=== PATIENT | male | born 1975 | race Caucasian/White ===

== ENCOUNTER 2017-06-12 15:53 | Emergency (ER) | payer BC, MEDICAID, OTHER ==
--- NOTE | 2017-06-12 17:23 | EDM.PDOC ---
ED HPI GENERAL MEDICAL PROBLEM - General Chief Complaint: Back Pain or Injury Stated Complaint: Back pain, fell in store Time Seen by Provider: 06/12/17 17:15 Source of Information: Reports: Patient, Family, RN History Limitations: Reports: No Limitations - History of Present Illness INITIAL COMMENTS - FREE TEXT/NARRATIVE: 41 yr male presents with low back pain. States he fell inside at [facility] at [place], [place] and fell on his left knee and braced self with hands. He recently had surgery to lower back about 8 days ago. States his juany are due to come out today or next Thursday. He will plan to have them taken out per his PCP in [place], [place]. States there may be about 15 inches of snow there on Thursday. If this snow does occur, his back-up plan is to come in to [place] for staple removal. He reported this fall to his surgeon and was recommended to come in to ER to have images done. After the fall was reported at [facility], pt proceeded to [place], 100 miles north. States his plans is to move to [place] and was getting some supplies to work on place in [place]. Pt is in the treatment room and is sitting in the treatment chair. He is moving his left knee without difficulty and no bruising noted to area. He has full ROM to left wrist and hand and no bruising or swelling noted. States he does have pain to back at the surgical area. [place] are intact and mild redness noted to juany, no drainage from wound and healing well. , Onset: Today Onset Date: 06/12/17 Location: Denies: Back Back Pain Score (Numeric/FACES): 5 - Related Data Allergies Allergy/AdvReac Type Severity Reaction Status Date / Time ampicillin Allergy Edema Verified 06/12/17 18:34 Penicillins Allergy Edema Verified 06/12/17 18:34 trazodone Allergy Priapism Uncoded 06/12/17 18:34 Home Meds: Home Meds Acetaminophen/oxyCODONE [Percocet 325-5 MG] 1 each PO Q6HR 06/12/17 [History] Citalopram Hydrobromide [Celexa] 20 mg PO DAILY 06/12/17 [History] Hydrochlorothiazide 25 mg PO DAILY 06/12/17 [History] Insulin Detemir [Levemir Flextouch] 72 units SQ DAILY 06/12/17 [History] Lisinopril 20 mg PO DAILY 06/12/17 [History] Methocarbamol [Robaxin-750] 750 mg PO TID 06/12/17 [History] Metoprolol Succinate [Toprol Xl] 25 mg PO DAILY 06/12/17 [History] SitaGLIPtin [Januvia] 100 mg PO DAILY 06/12/17 [History] atorvaSTATin [Lipitor] 40 mg PO BEDTIME 06/12/17 [History] metFORMIN [Glucophage XR] 1,000 mg PO BID 06/12/17 [History] Review of Systems - Review of Systems Review Of Systems: See Below Constitutional: Reports: No Symptoms Eyes: Reports: No Symptoms Ears: Reports: No Symptoms Nose: Reports: No Symptoms Mouth/Throat: Reports: No Symptoms Respiratory: Reports: No Symptoms Cardiovascular: Reports: No Symptoms GI/Abdominal: Reports: No Symptoms Musculoskeletal: Reports: Back Pain (lumbar back pain), Other (left knee pain and pain to left wrist.) Skin: Reports: No Symptoms Neurological: Reports: Headache (right side of head) Psychiatric: Reports: No Symptoms ED EXAM, GENERAL - Physical Exam Exam: See Below Exam Limited By: No Limitations General Appearance: Alert, No Apparent Distress Ears: Hearing Grossly Normal Nose: Normal Inspection. No: Nasal Tenderness, Nasal Deformity Throat/Mouth: Normal Lips, Normal Voice, No Airway Compromise Head: Atraumatic, Normocephalic. No: Facial Swelling Neck: Normal Inspection, Supple, Non-Tender Respiratory/Chest: No Respiratory Distress, Chest Non-Tender GI/Abdominal: Soft, Non-Tender Back Exam: Paraspinal Tenderness, Other (Alternates sitting to standing for comfort) Extremities: Normal Inspection, Normal Range of Motion, Normal Capillary Refill , Other (Pain to left knee and left hand/wrist). No: Joint Swelling Neurological: Alert, Oriented, Normal Cognition Psychiatric: Normal Affect, Normal Mood Skin Exam: Warm, Dry, Normal Color, Other ([place] intact to lumbar back, wound healing well and no open area, no drainage.) Lymphatic: No Adenopathy Course - Vital Signs Last Recorded V/S: Last Vital Signs Temp 97.2 F 06/12/17 19:22 Pulse 57 L 06/12/17 19:22 Resp 16 06/12/17 19:22 BP 131/76 06/12/17 19:22 Pulse Ox 98 06/12/17 19:22 - Orders/Labs/Meds Orders: Active Orders 24 hr Category Date Time Status Lumbar Spine 2 or 3V [CR] Stat Exams 06/12/17 17:25 Ordered Meds: Medications Discontinued Medications Generic Name Dose Route Start Last Admin Trade Name Tiago PRN Reason Stop Dose Admin Ketorolac Tromethamine 60 mg 06/12/17 18:58 06/12/17 19:00 Toradol IM 06/12/17 18:59 60 mg ONETIME ONE Administration Ketorolac Tromethamine Confirm 06/12/17 19:01 06/12/17 19:00 Toradol Administered 06/12/17 19:02 Not Given Dose 60 mg .ROUTE .STK-MED ONE - Re-Assessments/Exams Free Text/Narrative Re-Assessment/Exam: 06/12/17 19:10 No results from radiology quick read. Contacted Rad [phone] and states they will review GARETH. Waiting results. Departure - Departure Time of Disposition: 19:30 (Will contact pt with final results of x-ray.) Disposition: Home, Self-Care 01 Condition: Good Clinical Impression: Low back pain, Left knee pain - Discharge Information Referrals: PCP,None [Primary Care Provider] - Forms: ED Department Discharge Care Plan Goals: Instructed to return if pain does not get better. Antonieta states she will call with x ray results. Patient was given toradol for discomfort with good relief. Discharged at 1930. Pain from an 8 to a 5. Walking much better. - Problem List & Annotations (1) Low back pain SNOMED Code(s): 916243441 Code(s): M54.5 - LOW BACK PAIN Status: Acute (2) Left knee pain SNOMED Code(s): 66703699 Code(s): M25.562 - PAIN IN LEFT KNEE Status: Acute - Problem List Review Problem List Initiated/Reviewed/Updated: Yes - My Orders Last 24 Hours: My Active Orders 06/12/17 17:25 Lumbar Spine 2 or 3V [CR] Stat - Assessment/Plan Last 24 Hours: My Active Orders 06/12/17 17:25 Lumbar Spine 2 or 3V [CR] Stat Plan: LE 41 yr male with low back pain, left knee pain and left hand/wrist pain from fall inside store, stated per pt and significant other. Pt moving hand/wrist with no difficulty, full ROM to left knee. Recommend icing areas as needed, monitor for any increase in pain or bruising. With this previous surgery to back and fall, x-ray to lumbar spine completed. X-rays sent for quick read and x-rays sent to [facility] for pt surgeon. Contacted pt 06-14-17 with results of quick read. Compression fracture to T12. No other fracture noted. Final read of x-ray is pending. Recommend to rest area, may use ice to area. Pt reports pain to right side of head persists. Recommend use of ice to area. May use Tylenol or Percocet as needed and continue with Ibuprofen as prescribed per surgeon. Recommend F/U with PCP Thursday or return to ER sooner if symptoms worsen.
[2017-06-12] MEDS ORDERED: Ketorolac 60 MG/2 ML SDV IM ONE (18:58)
[2017-06-12] MEDS ORDERED: Ketorolac 60 MG/2 ML SDV ONE (19:01)
--- NOTE | 2017-06-15 07:14 | CR ---
DATE OF SERVICE: 06/12/2017 CLINICAL DATA: Low back pain. 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 There is slight anterior wedging of the T12 vertebra. This is probably chronic. The remaining vertebrae are of average height and in good alignment. The disc spaces appear relatively intact. There are surgical juany in the anterior abdominal wall. No other significant findings. Thank you for allowing us to participate in the care of your patient. [id number] [facility]
== END 2017-06-12 19:30 | disposition home or self-care (01) ==
LOC: LB.ED 15:53
DX: M54.5 Low back pain (principal); M25.562 Pain in left knee; Z79.4 Long term (current) use of insulin; Z88.1 Allergy status to other antibiotic agents; Z88.0 Allergy status to penicillin; Z88.8 Allergy status to other drugs, medicaments and biological substances; Z79.899 Other long term (current) drug therapy
CPT/HCPCS: 96372; 99284; J1885; 72100

== ENCOUNTER 2017-11-19 13:09 | Emergency (ER) | payer MEDICAID ==
[2017-11-19] MEDS ORDERED: Potassium Chloride 20 MEQ Tab.ER ONE (13:25)
--- NOTE | 2017-11-19 13:38 | EDM.PDOC ---
ED HPI GENERAL MEDICAL PROBLEM - General Chief Complaint: Diabetic Complaint Stated Complaint: TOOK WRONG INSULIN Time Seen by Provider: 11/19/17 13:20 Source of Information: Reports: Patient, RN History Limitations: Reports: No Limitations - History of Present Illness INITIAL COMMENTS - FREE TEXT/NARRATIVE: 41 yr male presents to ER with low blood sugar. States he took his short acting medication, instead of his long acting insulin. Took 72 units of novolog. - Related Data Allergies Allergy/AdvReac Type Severity Reaction Status Date / Time ampicillin Allergy Edema Verified 06/12/17 18:34 Penicillins Allergy Edema Verified 06/12/17 18:34 trazodone Allergy Priapism Uncoded 06/12/17 18:34 Home Meds: Home Meds Acetaminophen/oxyCODONE [Percocet 325-5 MG] 1 each PO Q6HR 06/12/17 [History] Citalopram Hydrobromide [Celexa] 20 mg PO DAILY 06/12/17 [History] Hydrochlorothiazide 25 mg PO DAILY 06/12/17 [History] Insulin Detemir [Levemir Flextouch] 72 units SQ DAILY 06/12/17 [History] Lisinopril 20 mg PO DAILY 06/12/17 [History] Methocarbamol [Robaxin-750] 750 mg PO TID 06/12/17 [History] Metoprolol Succinate [Toprol Xl] 25 mg PO DAILY 06/12/17 [History] SitaGLIPtin [Januvia] 100 mg PO DAILY 06/12/17 [History] atorvaSTATin [Lipitor] 40 mg PO BEDTIME 06/12/17 [History] metFORMIN [Glucophage XR] 1,000 mg PO BID 06/12/17 [History] ED ROS GENERAL - Review of Systems Review Of Systems: See Below Constitutional: Reports: No Symptoms, Other (diaphoresis on admit) HEENT: Reports: No Symptoms Respiratory: Reports: No Symptoms Cardiovascular: Reports: No Symptoms Endocrine: Reports: Low Glucose GI/Abdominal: Reports: No Symptoms : Reports: No Symptoms Musculoskeletal: Reports: No Symptoms Skin: Reports: No Symptoms Neurological: Reports: No Symptoms Psychiatric: Reports: No Symptoms ED EXAM GENERAL NO PERIP PULSE - Physical Exam Exam: See Below Exam Limited By: No Limitations General Appearance: Alert, No Apparent Distress (This is after juice, milk and kenton crackers) Ears: Hearing Grossly Normal, Normal TMs Course - Orders/Labs/Meds Orders: Active Orders 24 hr Category Date Time Status Blood Glucose Check, Bedside [RC] Q1HR Care 11/19/17 13:45 Active Labs: Laboratory Tests 11/19/17 11/19/17 11/19/17 Range/Units 12:25 13:24 13:45 Sodium 143 (136-145) mmol/L Potassium 3.1 L D (3.5-5.1) mmol/L Chloride 102 (98-107) mmol/L Carbon Dioxide 29.3 (21.0-32.0) mmol/L Anion Gap 14.8 (5.0-15.0) mmol/L BUN 23 D (8-26) mg/dL Creatinine 1.29 D (0.70-1.30) mg/dL Est Cr Clr Drug Dosing TNP Estimated GFR (MDRD) > 60 (>60) MLS/MIN BUN/Creatinine Ratio 17.8 (6-25) Glucose 56 L D (74-100) mg/dL POC Glucose 55 L 109 (74-110) mg/dL Calcium 9.8 (8.5-10.1) mg/dL 11/19/17 11/19/17 11/19/17 Range/Units 14:21 15:19 17:01 Sodium (136-145) mmol/L Potassium (3.5-5.1) mmol/L Chloride (98-107) mmol/L Carbon Dioxide (21.0-32.0) mmol/L Anion Gap (5.0-15.0) mmol/L BUN (8-26) mg/dL Creatinine (0.70-1.30) mg/dL Est Cr Clr Drug Dosing Estimated GFR (MDRD) (>60) MLS/MIN BUN/Creatinine Ratio (6-25) Glucose (74-100) mg/dL POC Glucose 78 42 L* 64 L (74-110) mg/dL Calcium (8.5-10.1) mg/dL Meds: Medications Discontinued Medications Generic Name Dose Route Start Last Admin Trade Name Freq PRN Reason Stop Dose Admin Dextrose/Sodium Chloride 1,000 mls @ 100 mls/hr 11/19/17 13:45 11/19/17 13:45 Dextrose 5%-Normal Saline IV 100 mls/hr ASDIRECTED SHASTA Administration Potassium Chloride 20 meq 11/19/17 20:00 Diane-Otilio M20 PO BID [facility] - Re-Assessments/Exams Free Text/Narrative Re-Assessment/Exam: 11/19/17 17:32 Pt has been alert and talkative. [place], milk and supper given. Blood sugar monitored. Potassium is 3.1. Will give Potassium 20 meq now and 1 tablet bid X 2 tablets tomorrow. Will discharge after blood sugar is stable. 11/19/17 21:23 LE RBS 209 now. Discharge pt to home. Monitor blood sugars at home. Continue potassium 20 meq bid tomorrow after eating. Recheck BMP Thursday. Follow-up in clinic next week with PCP. Departure - Departure Time of Disposition: 18:04 Disposition: Home, Self-Care 01 Condition: Good Clinical Impression: Hypoglycemia - Discharge Information Referrals: Antonieta Rodgers, COMPUTER AIDE [Primary Care Provider] - Forms: ED Department Discharge Additional Instructions: Take K+ 20meq tab in morning with BF and one with dinner. Follow up with K+ lab draw in a week. - My Orders Last 24 Hours: My Active Orders 11/19/17 13:45 Blood Glucose Check, Bedside [RC] Q1HR - Assessment/Plan Last 24 Hours: My Active Orders 11/19/17 13:45 Blood Glucose Check, Bedside [RC] Q1HR
[2017-11-19] MEDS ORDERED: Dextrose 5%-0.9% NaCl 1,000 ML IV SCH (13:45)
[2017-11-19] MEDS ORDERED: Potassium Chloride 20 MEQ Tab.ER PO SCH (20:00)
== END 2017-11-19 18:04 | disposition home or self-care (01) ==
LOC: LB.ED 13:09
DX: E16.2 Hypoglycemia, unspecified (principal); Z79.4 Long term (current) use of insulin; Z79.899 Other long term (current) drug therapy; Z88.0 Allergy status to penicillin; Z88.1 Allergy status to other antibiotic agents; Z88.8 Allergy status to other drugs, medicaments and biological substances
CPT/HCPCS: 36415; 80048; 82962; 99284; A9270

== ENCOUNTER 2019-08-04 07:26 | Day surgery (SDC) | payer MEDICAID ==
[~2019-08-04 07:26] MED LIST: Metoclopramide 10 MG/2 ML SDV IV PRN
[2019-08-04] MEDS: Sodium Chloride 0.9% 1,000 ML IV SCH (07:50)
[2019-08-04] MEDS ORDERED: Propofol 1,000 MG/100 ML SDV ONE (09:15)
[2019-08-04 09:44] VITALS: PULSE 47
[2019-08-04 10:21] VITALS: BP 130/76
--- NOTE | 2019-08-04 15:11 | OR ---
DATE OF OPERATION: 08/04/2019 SURGEON: Iker Duffy MD PREOPERATIVE DIAGNOSIS: Surveillance colonoscopy. POSTOPERATIVE DIAGNOSIS: Surveillance colonoscopy. PROCEDURE: Colonoscopy. ANESTHESIA: MAC. ESTIMATED BLOOD LOSS: None. COMPLICATIONS: None. INDICATION FOR THE PROCEDURE: The patient is a 43-year-old male who has a family history of colon cancer. Most recent colonoscopy was 8 years ago, was found to have polyps at that time. Also complains of bright red blood per rectum at times. He is here today for surveillance colonoscopy. DESCRIPTION OF PROCEDURE: Informed consent was obtained from the patient. The patient was taken to the operating room and placed on table in left lateral decubitus position. Monitored anesthesia care was administered. Digital rectal exam performed and was normal. Colonoscope then advanced through the anus, was able to reach the sigmoid colon inhibited by a tight corner. Adult colonoscope then withdrawn and a peds colonoscope reinserted. I was able to make it to the cecum with a peds colonoscope. Cecum was reached and the ileocecal valve identified. Colonoscope then slowly withdrawn. No masses. No polyps. No areas of ischemia or inflammation identified. He did have some large and small diverticula in the sigmoid colon. Retroflexion performed in the rectum was also otherwise unremarkable. Colonoscope then withdrawn. FINDINGS: Sigmoid diverticula. RECOMMENDATIONS: We would recommend repeat surveillance colonoscopy in 5 years due to family history as well as personal history of colon polyps. I would also recommend plenty of water and high-fiber diet for his diverticula. NAOMI/HARVEY /[id number]
== END 2019-08-04 10:25 | disposition home or self-care (01) ==
LOC: LB.SDS 07:26
PROVIDERS: ATTEND Surgery
DX: K62.5 Hemorrhage of anus and rectum (principal); K57.30 Diverticulosis of large intestine without perforation or abscess without bleeding; Z80.0 Family history of malignant neoplasm of digestive organs; Z86.010 Personal history of colon polyps
CPT/HCPCS: 36415; 82947; 82962; G0121; J2704; J7030

== ENCOUNTER 2020-01-18 18:23 | Emergency (ER) | payer MEDICAID ==
--- NOTE | 2020-01-18 20:44 | EDM.PDOC ---
ED HPI GENERAL MEDICAL PROBLEM - General Chief Complaint: General Stated Complaint: exposure COVID Time Seen by Provider: 01/18/20 20:25 Source of Information: Reports: Patient History Limitations: Reports: No Limitations - History of Present Illness INITIAL COMMENTS - FREE TEXT/NARRATIVE: Pt states he had a direct exposure to a COVID pt this past week and he had developed a mild ST today without fever or cough or other complaints. Concern is over COVID. Onset: Today Location: Reports: Other (Throat) Quality: Reports: Ache Severity: Mild Improves with: Reports: None Worsens with: Reports: None Associated Symptoms: Reports: No Other Symptoms - Related Data Allergies Allergy/AdvReac Type Severity Reaction Status Date / Time ampicillin Allergy Edema Verified 08/01/19 13:51 Penicillins Allergy Edema Verified 08/01/19 13:51 trazodone Allergy Priapism Uncoded 08/01/19 13:51 Home Meds: Home Meds Citalopram Hydrobromide [Celexa] 40 mg PO DAILY 06/12/17 [History] Lisinopril 40 mg PO DAILY 06/12/17 [History] Metoprolol Succinate [Toprol Xl] 150 mg PO DAILY 06/12/17 [History] atorvaSTATin [Lipitor] 40 mg PO BEDTIME 06/12/17 [History] hydroCHLOROthiazide [Hydrochlorothiazide] 50 mg PO DAILY 06/12/17 [History] metFORMIN [Glucophage XR] 1,000 mg PO BID 06/12/17 [History] Zolpidem Tartrate [Ambien] 10 mg PO BEDTIME 08/01/19 [History] amLODIPine [Norvasc] 5 mg PO DAILY 08/01/19 [History] buPROPion [Wellbutrin SR] 150 mg PO DAILY 08/01/19 [History] Past Medical History Cardiovascular History: Reports: Hypertension Gastrointestinal History: Reports: Other (See Below) Other Gastrointestinal History: Mom and Dad has Hx of polyps Psychiatric History: Reports: Depression Endocrine/Metabolic History: Reports: Diabetes, Type II Hematologic History: Reports: None Social & Family History - Caffeine Use Caffeine Use: Reports: Energy Drinks, Soda ED ROS ENT - Review of Systems Review Of Systems: See Below Constitutional: Reports: No Symptoms. Denies: Fever, Malaise, Weakness, Fatigue, Night Sweats, Diaphoresis, Decreased Appetite HEENT: Reports: Throat Pain. Denies: Dental Pain, Ear Discharge, Ear Pain, Eye Discharge, Eye Pain, Rhinitis, Sinus Problem, Throat Swelling Respiratory: Reports: No Symptoms. Denies: Shortness of Breath, Cough Cardiovascular: Reports: No Symptoms. Denies: Chest Pain Endocrine: Reports: No Symptoms GI/Abdominal: Reports: No Symptoms. Denies: Abdominal Pain, Nausea : Reports: No Symptoms Musculoskeletal: Reports: No Symptoms. Denies: Muscle Pain, Muscle Stiffness Skin: Reports: No Symptoms. Denies: Diaphoresis, Rash, Erythema Neurological: Reports: No Symptoms. Denies: Numbness, Trouble Speaking, Weakness, Change in Speech Psychiatric: Reports: No Symptoms ED EXAM, ENT - Physical Exam Exam: See Below Exam Limited By: No Limitations General Appearance: Alert, WD/WN, No Apparent Distress Ears: Normal External Exam, Normal Canal, Hearing Grossly Normal Nose: Normal Inspection, Normal Mucousa, No Blood Mouth/Throat: Normal Inspection, Normal Gums, Normal Lips, Normal Teeth, Other (very minimal posterior pharyx erythema). No: Throat Swelling, Tonsillar Exudates, Tonsillar Swelling, Trismus, Uvular Deviation, Uvular Edema Neck: Normal Inspection, Supple, Non-Tender, Full Range of Motion. No: Limited Range of Motion, Lymphadenopathy (R), Lymphadenopathy (L), Tender Midline, Thyromegaly Respiratory/Chest: No Respiratory Distress, Lungs Clear, Normal Breath Sounds, No Accessory Muscle Use Cardiovascular: Regular Rate, Rhythm Back: Normal Inspection, Full Range of Motion Course - Orders/Labs/Meds Labs: Laboratory Tests 01/18/20 Range/Units 19:00 COVID-19 (AVNI) Negative - Re-Assessments/Exams Free Text/Narrative Re-Assessment/Exam: 01/18/20 20:45 Pt's primary concern was about personal exposure to a + COVID close contact friend. Departure - Departure Time of Disposition: 20:46 Disposition: Home, Self-Care 01 Condition: Good Clinical Impression: Pharyngitis - Discharge Information *PRESCRIPTION DRUG MONITORING PROGRAM REVIEWED*: Not Applicable *COPY OF PRESCRIPTION DRUG MONITORING REPORT IN PATIENT PIERRE: Not Applicable Instructions: Pharyngitis, Viral Respiratory Infection, [id number] Forms: ED Department Discharge, ED Return to Work/School Form Additional Instructions: Follow up if needed
== END 2020-01-18 20:38 | disposition home or self-care (01) ==
LOC: LB.ED 18:23
DX: J02.9 Acute pharyngitis, unspecified (principal); Z20.828 Contact with and (suspected) exposure to other viral communicable diseases; E11.9 Type 2 diabetes mellitus without complications; F32.9 Major depressive disorder, single episode, unspecified; Z79.84 Long term (current) use of oral hypoglycemic drugs; Z79.899 Other long term (current) drug therapy; Z88.1 Allergy status to other antibiotic agents; Z88.0 Allergy status to penicillin; Z88.5 Allergy status to narcotic agent
CPT/HCPCS: 99282; 99283; U0002

== ENCOUNTER 2020-12-02 18:45 | Emergency (ER) | payer MEDICAID ==
--- NOTE | 2020-12-02 19:10 | EDM.PDOC ---
ED HPI GENERAL MEDICAL PROBLEM - General Chief Complaint: Gastrointestinal Problem Stated Complaint: Abdominal pain Time Seen by Provider: 12/02/20 18:50 Source of Information: Reports: Patient History Limitations: Reports: No Limitations - History of Present Illness INITIAL COMMENTS - FREE TEXT/NARRATIVE: pt states about 12-16month history of a right side abdominal mass that has been intermittently painful with activity including lifting. during the last several weeks, pt states the mass has increased in size and in the last three days has increased in pain to the point of him not being able to lift anything. he denies fever, chills, nausea, vomiting. Right Abdominal Pain Score (Numeric/FACES): 6 - Related Data Allergies Allergy/AdvReac Type Severity Reaction Status Date / Time ampicillin Allergy Edema Verified 12/02/20 19:03 Penicillins Allergy Edema Verified 12/02/20 19:03 trazodone Allergy Priapism Uncoded 12/02/20 19:03 Home Meds: Home Meds Citalopram Hydrobromide [Celexa] 40 mg PO DAILY 06/12/17 [History] Lisinopril 40 mg PO DAILY 06/12/17 [History] Metoprolol Succinate [Toprol Xl] 150 mg PO DAILY 06/12/17 [History] atorvaSTATin [Lipitor] 40 mg PO BEDTIME 06/12/17 [History] hydroCHLOROthiazide [Hydrochlorothiazide] 50 mg PO DAILY 06/12/17 [History] metFORMIN [Glucophage XR] 1,000 mg PO BID 06/12/17 [History] Zolpidem Tartrate [Ambien] 10 mg PO BEDTIME 08/01/19 [History] amLODIPine [Norvasc] 5 mg PO DAILY 08/01/19 [History] buPROPion [Wellbutrin SR] 150 mg PO DAILY 08/01/19 [History] Past Medical History Cardiovascular History: Reports: Hypertension Gastrointestinal History: Reports: Other (See Below) Other Gastrointestinal History: Mom and Dad has Hx of polyps Psychiatric History: Reports: Depression Endocrine/Metabolic History: Reports: Diabetes, Type II Hematologic History: Reports: None Social & Family History - Caffeine Use Caffeine Use: Reports: Energy Drinks, Soda ED ROS GENERAL - Review of Systems Review Of Systems: Comprehensive ROS is negative, except as noted in HPI. ED EXAM, GENERAL - Physical Exam Exam: See Below Exam Limited By: No Limitations General Appearance: Alert, WD/WN, No Apparent Distress Respiratory/Chest: No Respiratory Distress, Lungs Clear, Normal Breath Sounds, No Accessory Muscle Use Cardiovascular: Normal Peripheral Pulses, Regular Rate, Rhythm, No Edema, No Murmur Peripheral Pulses: 2+: Radial (L), Radial (R), Posterior Tibial (L), Posterior Tibial (R) GI/Abdominal: Normal Bowel Sounds, Soft, Mass (right hypogastric region with TTP.) Neurological: Alert, Oriented, Normal Cognition, Normal Gait Skin Exam: Warm, Dry, Intact Course - Vital Signs Last Recorded V/S: Last Vital Signs Temp 97.9 F 12/02/20 18:45 Pulse 95 12/02/20 18:45 Resp 18 12/02/20 18:45 BP 153/83 H 12/02/20 18:45 Pulse Ox 96 12/02/20 18:45 Departure - Departure Time of Disposition: 21:45 Disposition: Home, Self-Care 01 Condition: Good Clinical Impression: Abdominal wall pain - Discharge Information *PRESCRIPTION DRUG MONITORING PROGRAM REVIEWED*: No *COPY OF PRESCRIPTION DRUG MONITORING REPORT IN PATIENT PIERRE: No Sepsis Event Note (ED) - Evaluation Sepsis Screening Result: No Definite Risk - Focused Exam Vital Signs: Vital Signs Temp Pulse Resp BP Pulse Ox 12/02/20 18:45 97.9 F 95 18 153/83 H 96 - Problem List & Annotations (1) Abdominal wall pain SNOMED Code(s): 216316495 Code(s): R10.9 - UNSPECIFIED ABDOMINAL PAIN Status: Acute - Problem List Review Problem List Initiated/Reviewed/Updated: Yes - Assessment/Plan Assessment:: abdominal wall pain plan: OTC tylenol and ibuprofen at home. differentials considered: appendicitis, cholecystitis, incarcerated hernia.
[2020-12-02] MEDS: Iopamidol 612 MG/ML 100 ML Bottle IV SCH (19:59)
[2020-12-02] MEDS: Sodium Chloride 0.9% 50 ML SDV FLUSH ONE (19:59)
--- NOTE | 2020-12-03 09:47 | CT ---
DATE OF SERVICE: 12/02/20 CLINICAL DATA: right side abdominal wall mass, increasing pain ENHANCED ABDOMEN AND PELVIC CT: Multislice acquisition through the abdomen and pelvis with IV, but without oral contrast was performed. No priors. The lung bases are clear. The heart size is normal. The liver is normal size. 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 No focal hepatic lesions. The gallbladder appears normal. No biliary duct dilatation. The spleen is absent. The pancreas appears normal. The right and left adrenals appear normal. The right and left kidneys enhance symmetrically. No hydronephrosis or hydroureter. There is a small amount of fluid within the bladder. The bladder wall does appear to be thickened, most likely related to nondistension. Cystitis should be considered. The prostate is mildly enlarged. The patient is status post appendectomy. There is mild diverticulosis of the descending and sigmoid colon. No evidence of diverticulitis. No free air. No free fluid. No dilated loops of bowel. No adenopathy. No aortic aneurysm or dissection. There is degenerative disc disease at multiple lesions in the lower thoracic and lumbar spine. There is a 2.7 cm oval-shaped mass-like density within the left breast. This is probably related to gynecomastia. The right breast is not included. Bilateral mammograms on this patient should be considered. [id number] [facility]
== END 2020-12-02 21:35 | disposition home or self-care (01) ==
LOC: LB.ED 18:45
DX: R10.9 Unspecified abdominal pain (principal); I10 Essential (primary) hypertension; E11.9 Type 2 diabetes mellitus without complications; Z79.899 Other long term (current) drug therapy; Z88.1 Allergy status to other antibiotic agents; Z88.0 Allergy status to penicillin; Z88.5 Allergy status to narcotic agent
CPT/HCPCS: 36415; 74177; 80053; 85025; 99284; Q9967

== ENCOUNTER 2022-06-20 14:18 | Observation (INO) | payer MEDICAID ==
[2022-06-20] MEDS ORDERED: Sodium Chloride 0.9% 10 ML Syringe FLUSH PRN (15:28)
[2022-06-20 15:30] LABS: CORONAVIRUS COVID-19 NAA POSITIVE (NEGATIVE)
[2022-06-20] MEDS ORDERED: Ondansetron 4 MG/2 ML SDV IVPUSH ONE (15:38)
[2022-06-20] MEDS ORDERED: 50% Dextrose in Water 50 ML Syringe IVPUSH PRN (15:38)
[2022-06-20] MEDS ORDERED: Insulin Regular, Human 100 Units/ML 3 ML Vial IV ONE (15:38)
[2022-06-20] MEDS ORDERED: Glucagon,Human Recombinant 1 MG Vial IM PRN (15:38)
[2022-06-20] MEDS ORDERED: Sodium Chloride 0.9% 1,000 ML IV SCH ×2 (15:45→17:00)
[2022-06-20] MEDS ORDERED: Magnesium Sulfate/Water 2 GM in Premix Bag 1 BAG IV ONE (16:52)
[2022-06-20] MEDS ORDERED: Ketorolac 30 MG/ML SDV IVPUSH ONE (16:57)
[2022-06-20] MEDS: Azithromycin 250 MG Tab PO SCH (19:12)
[2022-06-20] MEDS ORDERED: Acetaminophen 325 MG Tab PO PRN (19:21)
[2022-06-21] MEDS ORDERED: Acetaminophen/Codeine 300-30 MG Tab ONE (02:55)
[2022-06-21] MEDS: Azithromycin 250 MG Tab PO SCH (07:12)
[2022-06-21] MEDS: Lactated Ringers 1,000 ML IV SCH ×2 (07:21→20:19)
[2022-06-21] MEDS: Acetaminophen/Codeine 300-30 MG Tab PO PRN ×3 (09:15→22:06)
[2022-06-21] MEDS ORDERED: Insulin Aspart 100 Units/ML 3 ML Pen SUBCUT ONE ×2 (12:31→14:10)
[2022-06-21] MEDS ORDERED: Glucagon,Human Recombinant 1 MG Vial IM PRN ×3 (12:31→16:23)
[2022-06-21] MEDS ORDERED: 50% Dextrose in Water 50 ML Syringe IVPUSH PRN ×3 (12:31→16:23)
[2022-06-21] MEDS: cefTRIAXone 1 GM in Sodium Chloride 0.9% 50 ML IV SCH (16:45)
[2022-06-21] MEDS: Albuterol/Ipratropium 3.0-0.5 MG/3 ML Neb Soln NEB SCH ×2 (16:55→22:06)
[2022-06-21] MEDS: methylPREDNISolone Sodium Succinate 40 MG/1 ML SDV IVPUSH SCH (16:55)
[2022-06-21] MEDS: Insulin Aspart 100 Units/ML 3 ML Pen SUBCUT SCH ×2 (17:53→21:40)
[2022-06-21] MEDS ORDERED: Dexamethasone/Tobramycin 0.1-0.3% Ophth Susp 2.5 ML Bottle EYEBOTH SCH (19:15)
[2022-06-21] MEDS ORDERED: atorvaSTATin 40 MG Tab PO SCH (20:00)
[2022-06-21] MEDS ORDERED: atorvaSTATin 40 MG Tab ONE (21:12)
[2022-06-21] MEDS ORDERED: Docusate Sodium 100 MG Cap PO PRN (23:18)
[2022-06-22] MEDS: Ciprofloxacin 0.3% Ophth Soln 2.5 ML Bottle EYEBOTH SCH ×3 (00:19→08:22)
[2022-06-22] MEDS: Acetaminophen/Codeine 300-30 MG Tab PO PRN (04:13)
[2022-06-22] MEDS: Albuterol/Ipratropium 3.0-0.5 MG/3 ML Neb Soln NEB SCH ×2 (04:19→10:22)
[2022-06-22] MEDS ORDERED: Insulin Aspart 100 Units/ML 3 ML Pen SUBCUT SCH (08:00)
[2022-06-22] MEDS ORDERED: ATORVASTATIN 40 MG PO SCH (08:00)
[2022-06-22] MEDS ORDERED: INSULIN GLARGINE HUMAN REC ANALOG 100 UNIT/ML SUBCUT SCH (08:00)
[2022-06-22] MEDS ORDERED: [UNRECOGNIZED DRUG - OTHER] PO SCH (08:00)
[2022-06-22] MEDS ORDERED: Metoprolol Succinate 50 MG Tab.ER PO SCH (08:00)
[2022-06-22] MEDS ORDERED: atorvaSTATin 40 MG Tab PO SCH (08:00)
[2022-06-22] MEDS ORDERED: Hydrocortisone/Neomycin/Polymyxin B Otic Susp 10 ML Bottle EARBOTH SCH (08:00)
[2022-06-22] MEDS ORDERED: metFORMIN 1,000 MG Tab PO SCH (08:00)
[2022-06-22] MEDS ORDERED: Lisinopril 20 MG Tab PO SCH (08:00)
[2022-06-22] MEDS ORDERED: METOPROLOL SUCCINATE 50 MG PO SCH (08:00)
[2022-06-22] MEDS ORDERED: Azithromycin 500 MG Tab PO SCH (08:00)
[2022-06-22] MEDS ORDERED: INSULIN ASPART 100 UNIT/ML SUBCUT SCH ×2 (08:00)
[2022-06-22] MEDS ORDERED: METFORMIN 500 MG PO SCH (08:00)
[2022-06-22] MEDS ORDERED: LISINOPRIL 40MG **PTOM PO SCH (08:00)
[2022-06-22] MEDS: methylPREDNISolone Sodium Succinate 40 MG/1 ML SDV IVPUSH SCH (08:21)
[2022-06-22 08:28] VITALS: BP 165/90; PULSE 63
[2022-06-22] MEDS: cefTRIAXone 1 GM in Sodium Chloride 0.9% 50 ML IV SCH (10:23)
== END 2022-06-22 11:10 | disposition home or self-care (01) ==
LOC: LB.ED 14:18 → LB.MS 19:12 → UNDOADMOB 21:32 → UNDODISOB 06-22 11:10
PROVIDERS: ADMIT Surgery; ATTEND Surgery
DX: U07.1 COVID-19 (principal); H65.91 Unspecified nonsuppurative otitis media, right ear; J06.9 Acute upper respiratory infection, unspecified; E86.0 Dehydration; I10 Essential (primary) hypertension; F32.A Depression, unspecified; E11.65 Type 2 diabetes mellitus with hyperglycemia; E83.42 Hypomagnesemia; Z79.4 Long term (current) use of insulin; Z79.84 Long term (current) use of oral hypoglycemic drugs; Z88.0 Allergy status to penicillin; Z88.8 Allergy status to other drugs, medicaments and biological substances; Z79.899 Other long term (current) drug therapy; Z98.890 Other specified postprocedural states
CPT/HCPCS: 0241U; 36415; 71045; 80048; 82947; 83735; 84100; 85025; 85027; 96361; 96365; 96366; 96367; 96375; 96376; 99221; 99238; 99284; 99285-25; A9270-GY; G0378; J0696; J1885; J2405; J2920; J3475; J7030; J7120; J7620

== ENCOUNTER 2023-03-05 13:10 | Inpatient (IN) | payer MEDICAID ==
[2023-03-05] MEDS ORDERED: Sodium Chloride 0.9% 10 ML Syringe FLUSH PRN (13:25)
[2023-03-05 13:52] LABS: HEMATOCRIT 40.1 % (40.0-54.0); HEMOGLOBIN 13.7 g/dL (13.0-18.0); MEAN CORPUSCULAR HEMOGLOBIN 32.3 pg (27.0-32.0); MEAN CORPUSCULAR HGB CONC 34.2 g/dL (31.0-35.0); MEAN PLATELET VOLUME 11.9 fL (6.0-10.0); RED BLOOD CELL COUNT 4.24 M/uL (4.50-6.50); RED CELL DISTRIBUTION WIDTH 13.8 % (11.0-16.0); WHITE BLOOD CELL COUNT,WBC 10.3 K/uL (4.0-11.0)
[2023-03-05] MEDS ORDERED: Sodium Chloride 0.9% 1,000 ML IV SCH ×3 (14:00→14:15)
[2023-03-05] MEDS ORDERED: Ondansetron 4 MG Tab.DIS PO ONE (14:11)
[2023-03-05] MEDS ORDERED: Ondansetron 4 MG Tab.DIS ONE ×2 (14:11→23:48)
[2023-03-05 14:12] LABS: A/G RATIO 0.6 (0.8-2.0); ALBUMIN 3.1 g/dL (3.4-5.0); ANION GAP 30.8 mmol/L (5.0-15.0); BILIRUBIN TOTAL 0.5 mg/dL (0.0-1.0); BUN/CREATININE RATIO 13.4 (6-25); CALCIUM 10.5 mg/dL (8.5-10.1); CREATININE 1.79 mg/dL (0.70-1.30); EST CRCL DRUG DOSING (CG) 35.3 mL/min; MAGNESIUM 2.2 mg/dL (1.8-2.4); POTASSIUM,K 5.7 mmol/L (3.5-5.1); PROTEIN TOTAL,TP 8.3 g/dL (6.4-8.2); TROPONIN I HIGH SENSITIVITY 17.4 pg/ml (<=60.4)
[2023-03-05 14:14] LABS: CARBON DIOXIDE,CO2 8.9 mmol/L (21.0-32.0)
[2023-03-05 14:26] LABS: PHOSPHORUS 6.3 mg/dL (2.5-4.9)
[2023-03-05] MEDS ORDERED: Insulin Regular, Human 100 Units/ML 3 ML Vial IV SCH ×2 (14:30→16:00)
[2023-03-05] MEDS ORDERED: 50% Dextrose in Water 50 ML Syringe IVPUSH PRN ×2 (14:30→16:47)
[2023-03-05] MEDS ORDERED: Glucagon,Human Recombinant 1 MG Vial IM PRN ×2 (14:30→16:47)
[2023-03-05] MEDS ORDERED: Morphine 4 MG/ML VIAL IVPUSH ONE (14:30)
[2023-03-05] MEDS ORDERED: Morphine 4 MG/ML VIAL ONE (14:38)
[2023-03-05 14:51] LABS: BASE EXCESS ARTERIAL -27.1 (-2-2); BICARBONATE,ARTERIAL 3.4 mmol/L (22-26); O2 SATURATION ARTERIAL 97.8 % (95-98)
[2023-03-05 14:53] LABS: PCO2 ARTERIAL 12.1 mmHg (35-45); PO2 ARTERIAL 138.9 mmHg (80-105)
[2023-03-05] MEDS ORDERED: Sodium Bicarbonate 8.4% 50 MEQ/50 ML Syringe IVPUSH ONE (15:02)
[2023-03-05] MEDS ORDERED: Lactated Ringers 1,000 ML IV ONE (15:15)
[2023-03-05] MEDS ORDERED: Insulin Aspart 100 Units/ML 3 ML Pen SUBCUT PRN ×2 (16:47→16:50)
[2023-03-05] MEDS: Lactated Ringers 1,000 ML IV SCH (17:25)
[2023-03-05] MEDS ORDERED: Sodium Bicarbonate 8.4% 50 MEQ/50 ML Syringe ONE (19:16)
[2023-03-05] MEDS: atorvaSTATin 40 MG Tab PO SCH (20:15)
[2023-03-05] MEDS: Insulin Aspart 100 Units/ML 3 ML Pen SUBCUT SCH (20:16)
[2023-03-05] MEDS: Ondansetron 4 MG Tab.DIS PO PRN (23:50)
[2023-03-06] MEDS: Lactated Ringers 1,000 ML IV SCH ×3 (01:36→19:28)
[2023-03-06] MEDS: Magnesium Oxide 400 MG Tab PO SCH (07:43)
[2023-03-06] MEDS: Lisinopril 20 MG Tab PO SCH (07:43)
[2023-03-06] MEDS: Spironolactone 25 MG Tab PO SCH (07:45)
[2023-03-06] MEDS: Metoprolol Succinate 100 MG Tab.ER PO SCH (07:45)
[2023-03-06] MEDS: Non-Formulary Medication 1 Each (Phentermine Hcl [Phentermine Hcl] 37.5 MG Capsule) PO SCH (07:48)
[2023-03-06] MEDS: Insulin Aspart 100 Units/ML 3 ML Pen SUBCUT SCH ×4 (07:50→19:26)
[2023-03-06] MEDS: Insulin Glargine,Human Rec. Analog 100 Units/ML 3 ML Pen SUBCUT SCH (07:50)
[2023-03-06 07:54] LABS: APPEARANCE,URINE CLEAR (CLEAR); BILIRUBIN,URINE LARGE (NEGATIVE); COLOR,URINE YELLOW; GLUCOSE,URINE 500 mg/dL (NEGATIVE); KETONES,URINE 80 mg/dL (NEGATIVE); LEUKOCYTE ESTERASE,URINE NEGATIVE (NEGATIVE); NITRITE,URINE NEGATIVE (NEGATIVE); OCCULT BLOOD,URINE SMALL (NEGATIVE); PH,URINE 5.5 (5.0-8.0); PROTEIN,URINE >=300 mg/dL (NEGATIVE); UROBILINOGEN,URINE 0.2 E.U./dL (0.2-1.0)
[2023-03-06] MEDS ORDERED: Non-Formulary Medication 1 Each (Magnesium [Magnesium] 250 MG Tablet) PO SCH (08:00)
[2023-03-06 08:20] LABS: AMORPHOUS SEDIMENT,URINE FEW /HPF; RBC,URINE 0-5 /HPF; WBC,URINE 0-5 /HPF
[2023-03-06] MEDS: Ondansetron 4 MG Tab.DIS PO PRN (08:25)
[2023-03-06 08:30] LABS: ANION GAP 15.3 mmol/L (5.0-15.0); BUN/CREATININE RATIO 15.2 (6-25); CALCIUM 9.3 mg/dL (8.5-10.1); CARBON DIOXIDE,CO2 20.1 mmol/L (21.0-32.0); CREATININE 1.58 mg/dL (0.70-1.30); EST CRCL DRUG DOSING (CG) 54.72 mL/min; POTASSIUM,K 4.4 mmol/L (3.5-5.1)
[2023-03-06] MEDS ORDERED: Acetaminophen 325 MG Tab PO ONE (08:30)
[2023-03-06] MEDS ORDERED: Ondansetron 4 MG Tab.DIS PO PRN (08:30)
[2023-03-06] MEDS ORDERED: Acetaminophen 325 MG Tab ONE (08:34)
[2023-03-06] MEDS: Pantoprazole 40 MG Tab.CR PO SCH (09:52)
[2023-03-06] MEDS: Acetaminophen 325 MG Tab PO SCH ×4 (09:52→21:48)
[2023-03-06] MEDS ORDERED: Morphine 4 MG/ML VIAL IVPUSH PRN (13:18)
[2023-03-06] MEDS: Orphenadrine 60 MG/2 ML Inj IV SCH (13:53)
[2023-03-06] MEDS: Famotidine 20 MG Tab PO SCH (19:25)
[2023-03-06] MEDS: atorvaSTATin 40 MG Tab PO SCH (19:26)
[2023-03-07] MEDS: Orphenadrine 60 MG/2 ML Inj IV SCH ×2 (02:00→14:10)
[2023-03-07] MEDS: Acetaminophen 325 MG Tab PO SCH ×4 (02:00→20:22)
[2023-03-07] MEDS: Lactated Ringers 1,000 ML IV SCH ×3 (03:29→22:53)
[2023-03-07 07:51] LABS: HEMATOCRIT 33.1 % (40.0-54.0); HEMOGLOBIN 11.6 g/dL (13.0-18.0); MEAN PLATELET VOLUME 11.9 fL (6.0-10.0); RED BLOOD CELL COUNT 3.63 M/uL (4.50-6.50); WHITE BLOOD CELL COUNT,WBC 7.3 K/uL (4.0-11.0)
[2023-03-07 07:55] LABS: ANION GAP 10.6 mmol/L (5.0-15.0); BUN/CREATININE RATIO 13.2 (6-25); CALCIUM 8.7 mg/dL (8.5-10.1); CARBON DIOXIDE,CO2 25.6 mmol/L (21.0-32.0); CREATININE 1.06 mg/dL (0.70-1.30); EST CRCL DRUG DOSING (CG) 81.56 mL/min; POTASSIUM,K 3.2 mmol/L (3.5-5.1)
[2023-03-07] MEDS: Pantoprazole 40 MG Tab.CR PO SCH (08:12)
[2023-03-07] MEDS: Magnesium Oxide 400 MG Tab PO SCH (08:12)
[2023-03-07] MEDS: Metoprolol Succinate 100 MG Tab.ER PO SCH (08:12)
[2023-03-07] MEDS: Lisinopril 20 MG Tab PO SCH (08:13)
[2023-03-07] MEDS: Spironolactone 25 MG Tab PO SCH (08:14)
[2023-03-07] MEDS: Famotidine 20 MG Tab PO SCH ×2 (08:14→19:22)
[2023-03-07] MEDS: Insulin Glargine,Human Rec. Analog 100 Units/ML 3 ML Pen SUBCUT SCH (08:17)
[2023-03-07] MEDS: Insulin Aspart 100 Units/ML 3 ML Pen SUBCUT SCH ×4 (08:17→19:20)
[2023-03-07] MEDS: Non-Formulary Medication 1 Each (Phentermine Hcl [Phentermine Hcl] 37.5 MG Capsule) PO SCH (08:19)
[2023-03-07] MEDS ORDERED: Sodium Chloride 0.9% 50 ML IV ONE (11:46)
[2023-03-07] MEDS ORDERED: Iopamidol 612 MG/ML 100 ML Bottle IV SCH (12:00)
[2023-03-07] MEDS: atorvaSTATin 40 MG Tab PO SCH (19:22)
[2023-03-07] MEDS ORDERED: Zolpidem 5 MG Tab PO PRN (20:07)
[2023-03-08] MEDS: Orphenadrine 60 MG/2 ML Inj IV SCH (00:34)
[2023-03-08] MEDS: Acetaminophen 325 MG Tab PO SCH ×2 (01:43→07:45)
[2023-03-08] MEDS: Lactated Ringers 1,000 ML IV SCH (06:56)
[2023-03-08] MEDS: Metoprolol Succinate 100 MG Tab.ER PO SCH (07:24)
[2023-03-08] MEDS: Spironolactone 25 MG Tab PO SCH (07:24)
[2023-03-08] MEDS: Famotidine 20 MG Tab PO SCH (07:24)
[2023-03-08] MEDS: Pantoprazole 40 MG Tab.CR PO SCH (07:25)
[2023-03-08] MEDS: Magnesium Oxide 400 MG Tab PO SCH (07:25)
[2023-03-08] MEDS: Lisinopril 20 MG Tab PO SCH (07:25)
[2023-03-08] MEDS: Insulin Aspart 100 Units/ML 3 ML Pen SUBCUT SCH (07:32)
[2023-03-08] MEDS: Insulin Glargine,Human Rec. Analog 100 Units/ML 3 ML Pen SUBCUT SCH (07:32)
== END 2023-03-08 12:08 | disposition home or self-care (01) | DRG 682 ==
LOC: LB.ED 13:10 → LB.MS 16:43
PROVIDERS: ADMIT Surgery; ATTEND Surgery
DX: N17.9 Acute kidney failure, unspecified (principal); E10.10 Type 1 diabetes mellitus with ketoacidosis without coma; E87.1 Hypo-osmolality and hyponatremia; R51.9 Headache, unspecified; E78.5 Hyperlipidemia, unspecified; K21.9 Gastro-esophageal reflux disease without esophagitis; F41.9 Anxiety disorder, unspecified; F32.A Depression, unspecified; R10.13 Epigastric pain; I16.0 Hypertensive urgency; F90.9 Attention-deficit hyperactivity disorder, unspecified type; E66.9 Obesity, unspecified; I10 Essential (primary) hypertension; Z79.899 Other long term (current) drug therapy; Z79.4 Long term (current) use of insulin; Z88.0 Allergy status to penicillin; Z68.29 Body mass index [BMI] 29.0-29.9, adult; Z88.1 Allergy status to other antibiotic agents; Z88.8 Allergy status to other drugs, medicaments and biological substances; Z86.73 Personal history of transient ischemic attack (TIA), and cerebral infarction without residual deficits; Z90.49 Acquired absence of other specified parts of digestive tract; Z98.1 Arthrodesis status; Z98.890 Other specified postprocedural states
CPT/HCPCS: 36415; 36600; 70450; 71045; 74177; 80048; 80053; 81001; 82009; 82803; 82947; 83690; 83735; 84100; 84484; 85027; 93005; 96361; 96374; 99222; 99232; 99239; 99285-25; A0425; A0429; A9270-GY; J2270; J2360; J7030; J7120; Q0162

== ENCOUNTER 2023-06-19 09:36 | Emergency (ER) | payer MEDICAID ==
[2023-06-19] MEDS ORDERED: Glucagon,Human Recombinant 1 MG Vial IM ONE (09:43)
[2023-06-19 09:57] LABS: BASOPHILS ABSOLUTE AUTO 0.03 K/uL (0.02-0.10); BASOPHILS PERCENT AUTO 0.2 % (0.0-0.5); EOSINOPHILS ABSOLUTE AUTO 0.14 K/uL (0.04-0.40); EOSINOPHILS PERCENT AUTO 1.2 % (1.0-5.0); HEMATOCRIT 37.4 % (40.0-54.0); HEMOGLOBIN 14.1 g/dL (13.0-18.0); LYMPHOCYTES ABSOLUTE AUTO 1.45 K/uL (1.50-4.00); LYMPHOCYTES PERCENT AUTO 12.1 % (20.0-40.0); MEAN CORPUSCULAR HEMOGLOBIN 31.9 pg (27.0-32.0); MEAN CORPUSCULAR HGB CONC 37.7 g/dL (31.0-35.0); MEAN CORPUSCULAR VOLUME 85 fL (76-96); MEAN PLATELET VOLUME 10.7 fL (6.0-10.0); MONOCYTES ABSOLUTE AUTO 1.09 K/uL (0.20-0.80); MONOCYTES PERCENT AUTO 9.1 % (3.0-10.0); NEUTROPHILS ABSOLUTE AUTO 9.32 K/uL (2.00-7.50); NEUTROPHILS PERCENT AUTO 77.4 % (45.0-70.0); PLATELET COUNT,PLT 530 K/uL (150-400); RED BLOOD CELL COUNT 4.42 M/uL (4.50-6.50); RED CELL DISTRIBUTION WIDTH 14.1 % (11.0-16.0)
[2023-06-19 10:11] LABS: A/G RATIO 0.6 (0.8-2.0); ALBUMIN 2.5 g/dL (3.4-5.0); ANION GAP 11.6 mmol/L (5.0-15.0); BILIRUBIN TOTAL 0.4 mg/dL (0.0-1.0); BUN/CREATININE RATIO 14.2 (6-25); CALCIUM 8.7 mg/dL (8.5-10.1); CARBON DIOXIDE,CO2 28.9 mmol/L (21.0-32.0); CREATININE 1.06 mg/dL (0.70-1.30); EST CRCL DRUG DOSING (CG) 81.56 mL/min; MAGNESIUM 1.8 mg/dL (1.8-2.4); POTASSIUM,K 3.5 mmol/L (3.5-5.1); PROTEIN TOTAL,TP 6.7 g/dL (6.4-8.2)
[2023-06-19] MEDS ORDERED: Lisinopril 10 MG Tab PO ONE (10:57)
[2023-06-19] MEDS ORDERED: Metoprolol Succinate 100 MG Tab.ER PO ONE (10:58)
== END 2023-06-19 11:28 | disposition home or self-care (01) ==
LOC: LB.ED 09:36
DX: E11.649 Type 2 diabetes mellitus with hypoglycemia without coma (principal); I10 Essential (primary) hypertension; E78.00 Pure hypercholesterolemia, unspecified; K21.9 Gastro-esophageal reflux disease without esophagitis; E66.9 Obesity, unspecified; Z86.73 Personal history of transient ischemic attack (TIA), and cerebral infarction without residual deficits; Z79.4 Long term (current) use of insulin; Z79.84 Long term (current) use of oral hypoglycemic drugs; Z79.899 Other long term (current) drug therapy; Z88.0 Allergy status to penicillin; Z88.1 Allergy status to other antibiotic agents; Z88.8 Allergy status to other drugs, medicaments and biological substances
CPT/HCPCS: 36415; 80053; 82947; 83735; 85025; 96372; 99283; A9270; J1610

== ENCOUNTER 2023-08-21 16:48 | Emergency (ER) | payer MEDICAID ==
[2023-08-21] MEDS: Magnesium Sulfate/Water 2 GM in Premix Bag 2 BAG IV SCH (17:54)
[2023-08-21] MEDS: Magnesium Sulfate/Water 4 GM in Premix Bag 1 BAG IV ONE (17:54)
[2023-08-21] MEDS: Magnesium Sulfate/Water 2 GM in Premix Bag 1 BAG IV ONE ×2 (17:55→19:22)
[2023-08-21] MEDS ORDERED: Magnesium Sulfate/Water 2 GM in Premix Bag 2 BAG IV SCH (18:00)
== END 2023-08-21 20:45 | disposition home or self-care (01) ==
LOC: LB.ED 16:48
DX: E83.42 Hypomagnesemia (principal); I12.9 Hypertensive chronic kidney disease with stage 1 through stage 4 chronic kidney disease, or unspecified chronic kidney disease; N18.9 Chronic kidney disease, unspecified; E11.10 Type 2 diabetes mellitus with ketoacidosis without coma; E11.22 Type 2 diabetes mellitus with diabetic chronic kidney disease; Z79.4 Long term (current) use of insulin; Z88.0 Allergy status to penicillin; Z88.8 Allergy status to other drugs, medicaments and biological substances
CPT/HCPCS: 96365; 96366; 99283; 99284; J3475

== ENCOUNTER 2024-03-16 13:24 | Emergency (ER) | payer MEDICAID ==
[2024-03-16] MEDS: Ondansetron 4 MG/2 ML SDV IVPUSH ONE (13:57)
[2024-03-16] MEDS: Metoprolol Succinate 100 MG Tab.ER PO ONE (14:02)
[2024-03-16] MEDS: Lisinopril 20 MG Tab PO SCH (14:02)
[2024-03-16] MEDS: Furosemide 20 MG Tab PO ONE (14:03)
[2024-03-16 14:21] LABS: BASOPHILS ABSOLUTE AUTO 0.07 K/uL (0.02-0.10); BASOPHILS PERCENT AUTO 0.5 % (0.0-0.5); EOSINOPHILS ABSOLUTE AUTO 0.06 K/uL (0.04-0.40); EOSINOPHILS PERCENT AUTO 0.5 % (1.0-5.0); HEMATOCRIT 31.7 % (40.0-54.0); HEMOGLOBIN 10.8 g/dL (13.0-18.0); LYMPHOCYTES ABSOLUTE AUTO 0.79 K/uL (1.50-4.00); LYMPHOCYTES PERCENT AUTO 6.1 % (20.0-40.0); MEAN CORPUSCULAR HEMOGLOBIN 32.7 pg (27.0-32.0); MEAN CORPUSCULAR HGB CONC 34.1 g/dL (31.0-35.0); MEAN CORPUSCULAR VOLUME 96 fL (76-96); MEAN PLATELET VOLUME 12.8 fL (6.0-10.0); MONOCYTES ABSOLUTE AUTO 1.17 K/uL (0.20-0.80); NEUTROPHILS ABSOLUTE AUTO 10.93 K/uL (2.00-7.50); NEUTROPHILS PERCENT AUTO 83.9 % (45.0-70.0); PLATELET COUNT,PLT 324 K/uL (150-400); RED CELL DISTRIBUTION WIDTH 13.3 % (11.0-16.0)
[2024-03-16] MEDS: Acetaminophen 500 MG Tab PO ONE (14:25)
[2024-03-16 14:32] LABS: MAGNESIUM 1.5 mg/dL (1.8-2.4); PHOSPHORUS 2.8 mg/dL (2.5-4.9)
[2024-03-16 14:34] LABS: A/G RATIO 0.4 (0.8-2.0); ALBUMIN 2.1 g/dL (3.4-5.0); ANION GAP 13.4 mmol/L (5.0-15.0); BILIRUBIN TOTAL 0.7 mg/dL (0.0-1.0); BUN/CREATININE RATIO 11.2 (6-25); CALCIUM 8.8 mg/dL (8.5-10.1); CARBON DIOXIDE,CO2 27.1 mmol/L (21.0-32.0); CREATININE 0.98 mg/dL (0.70-1.30); EST CRCL DRUG DOSING (CG) 87.24 mL/min; POTASSIUM,K 3.5 mmol/L (3.5-5.1); PROTEIN TOTAL,TP 6.9 g/dL (6.4-8.2); TROPONIN I HIGH SENSITIVITY 14.8 pg/ml (<=60.4)
[2024-03-16 14:41] LABS: APPEARANCE,URINE CLEAR (CLEAR); COLOR,URINE YELLOW; GLUCOSE,URINE 100 mg/dL (NEGATIVE); PROTEIN,URINE >=300 mg/dL (NEGATIVE)
[2024-03-16 14:42] LABS: BILIRUBIN,URINE NEGATIVE (NEGATIVE); KETONES,URINE TRACE mg/dL (NEGATIVE); LEUKOCYTE ESTERASE,URINE NEGATIVE (NEGATIVE); NITRITE,URINE NEGATIVE (NEGATIVE); OCCULT BLOOD,URINE TRACE-INTACT (NEGATIVE); UROBILINOGEN,URINE 0.2 E.U./dL (0.2-1.0)
[2024-03-16 14:43] LABS: EPITHELIAL CELLS,URINE RARE /HPF; RBC,URINE 0-5 /HPF; WBC,URINE 0-5 /HPF
[2024-03-16 14:44] LABS: KETONES,BLOOD NEGATIVE (NEGATIVE)
[2024-03-16 14:45] LABS: BASE EXCESS VENOUS 0.3 mm/L (-2-3); BICARBONATE,VENOUS 24.8 mmol/L (23.0-28.0); PCO2 VENOUS 38.5 mm/Hg (41-51); PH,VENOUS 7.42 (7.31-7.41)
[2024-03-16 14:51] LABS: CORONAVIRUS COVID-19 NAA NEGATIVE (NEGATIVE); INFLUENZA A NAA NEGATIVE (NEGATIVE)
[2024-03-16 14:52] LABS: INFLUENZA B NAA NEGATIVE (NEGATIVE)
[2024-03-16] MEDS: Acetaminophen 500 MG Tab ONE (14:56)
[2024-03-16] MEDS: Ketorolac 30 MG/ML SDV IVPUSH ONE (14:58)
[2024-03-16] MEDS: Magnesium Sulfate/Water Premix 2 GM in Premix Bag 1 BAG IV ONE (15:04)
[2024-03-16] MEDS: droPERidol 5 MG/2 ML SDV IVPUSH ONE (15:11)
[2024-03-16] MEDS: Metoclopramide 10 MG/2 ML SDV IVPUSH ONE (15:12)
[2024-03-16] MEDS: Magnesium Sulfate/Water Premix 50 ML ONE (15:56)
[2024-03-16] MEDS: Ketorolac 30 MG/ML SDV ONE (15:56)
[2024-03-16] MEDS: Metoclopramide 10 MG/2 ML SDV ONE (15:56)
[2024-03-16] MEDS: Dexamethasone 4 MG/ML SDV IVPUSH ONE (16:33)
[2024-03-18] MEDS: Dexamethasone 4 MG/ML SDV ONE (08:52)
== END 2024-03-16 17:00 | disposition home or self-care (01) ==
LOC: LB.ED 13:24
DX: R51.9 Headache, unspecified (principal); I10 Essential (primary) hypertension; E78.00 Pure hypercholesterolemia, unspecified; E11.9 Type 2 diabetes mellitus without complications; E66.9 Obesity, unspecified; Z90.49 Acquired absence of other specified parts of digestive tract; Z79.899 Other long term (current) drug therapy; Z79.1 Long term (current) use of non-steroidal anti-inflammatories (NSAID); Z79.85 Long-term (current) use of injectable non-insulin antidiabetic drugs; Z88.0 Allergy status to penicillin; Z88.5 Allergy status to narcotic agent; Z68.31 Body mass index [BMI] 31.0-31.9, adult
CPT/HCPCS: 0240U; 36415; 70450; 71045; 80053; 81001; 82009; 82803; 82947; 83605; 83735; 83880; 84100; 84484; 85025; 93005; 93010; 96365; 96366; 96375; 99284; 99284-25; A9270-GY; J1100; J1885; J2405; J2765; J3475